=== PATIENT | female | born 1940 | race Two or more races ===

== ENCOUNTER 2018-11-10 11:24 | Day surgery (SDC) | payer OTHER, MEDICARE ==
[2018-11-10] MEDS: CEFAZOLIN 2 GM/50 ML (PMX) 50 ML IVPB (06:00)
[2018-11-10] MEDS: SOD CHLORIDE 0.9% 1,000 ML IV (13:30)
[2018-11-10] MEDS ORDERED: POLYMYXIN/BACITRACIN 1L IRRIG (14:36)
[2018-11-10] MEDS ORDERED: SUCCINYLCHOLINE CHLORIDE 100 MG/5 ML SYG IV (14:57)
[2018-11-10] MEDS ORDERED: LIDOCAINE 2% (SDV) 5 ML INJ (14:57)
[2018-11-10] MEDS ORDERED: CEFAZOLIN 1 GM INJ (14:57)
[2018-11-10] MEDS ORDERED: DESFLURANE 15 MIN (14:57)
[2018-11-10] MEDS ORDERED: FENTAnyl 50 MCG/ML VIAL (14:57)
[2018-11-10] MEDS ORDERED: SUGAMMADEX SODIUM 200 MG/2 ML VIAL IV (14:57)
[2018-11-10] MEDS ORDERED: ROPIVACAINE 0.5 % 30 ML VIAL (14:58)
[2018-11-10] MEDS ORDERED: METOCLOPRAMIDE 10 MG INJ IV (15:00)
[2018-11-10] MEDS ORDERED: ALBUTEROL 0.083% (NEB) 2.5 MG/3 ML AMP HHN (15:00)
[2018-11-10] MEDS ORDERED: ONDANSETRON 4 MG INJ IV (15:00)
[2018-11-10] MEDS ORDERED: HYDROmorphONE 1 MG/5 ML IV SYRINGE IV ×2 (15:00)
[2018-11-10] MEDS ORDERED: DIPHENHYDRAMINE 50 MG INJ IV (15:00)
[2018-11-10] MEDS ORDERED: FENTAnyl 50 MCG/ML VIAL IV (15:00)
[2018-11-10] MEDS ORDERED: PROPOFOL 20 ML (15:20)
[2018-11-10] MEDS: FENTAnyl 50 MCG/ML VIAL IV ×2 (16:01→16:28)
[2018-11-10] MEDS: HYDROCODONE/APAP (5/325) TAB PO (16:21)
== END 2018-11-10 18:02 | disposition home or self-care (01) ==
LOC: SDS 11:24
DX: K43.6 Other and unspecified ventral hernia with obstruction, without gangrene (principal); E11.9 Type 2 diabetes mellitus without complications; I10 Essential (primary) hypertension; I25.10 Atherosclerotic heart disease of native coronary artery without angina pectoris; Z79.82 Long term (current) use of aspirin; Z79.84 Long term (current) use of oral hypoglycemic drugs
CPT/HCPCS: 49653; 82962